=== PATIENT | male | born 1935 | race Caucasian/White ===

== ENCOUNTER → 2024-04-17 08:24 | Outpatient (REF) | payer MEDICARE, OTHER, SELFPAY | LOC: RST 08:24 | DX: R13.10 Dysphagia, unspecified (principal); T17.308D Unspecified foreign body in larynx causing other injury, subsequent encounter; K22.2 Esophageal obstruction | CPT/HCPCS: 74230; 92611 ==

== ENCOUNTER 2024-05-31 14:10 | Inpatient (IN) | payer MEDICARE, OTHER, SELFPAY ==
[2024-05-31] VITALS (9 sets, daily range): BP systolic 124–158; BP diastolic 47–86; BMI 19.8
--- NOTE | 2024-05-31 11:58 | ED.GENMED ---
History of Present Illness
General
Chief Complaint: Change in Mental Status
Source: records, ambulance crew and intermediate
Exam Limitations: clinical condition and dementia
Time Seen by Provider: 05/31/24 11:57
Nursing documentation reviewed up to this point in time: agreed with
History of Present Illness
History of Present Illness:
88-year-old male with a past medical history of dementia, chronic dysphagia with PEG tube, prior stroke with residual aphasia who presents to the emergency room from [facility] as a prehospital stroke alert�EMS was called for a
change in mental status and noted the facial droop which prompted them to call stroke alert. Patient cannot meaningfully participate in history�he is completely nonverbal here. According to EMS they found him lethargic on their arrival, responsive
to painful stimuli. Not following commands, nonverbal. Accu-Chek was reportedly normal. They noted a slight right facial droop and called prehospital stroke alert. I spoke with the nurse practitioner at [facility] to obtain collateral
history: Patient at baseline has quite advanced dementia. He is essentially nonverbal�'on a good day he might be able to say his name but I cannot remember the last time he did.' He is completely dependent for all ADLs. He does have issues with
chronic dysphagia but recently restarted feeds and no longer using PEG�he is currently on pur�ed texture diet with thin liquids. He was in his normal state of health this morning and they were doing his a.m. care which included bathing and changing
his close. During this time they noticed that he had sudden onset of muscle rigidity and started staring into space and was unresponsive. Nurse practitioner says that they laid him down and checked his vital signs and they were normal. Nurse
practitioner noted some vertical nystagmus and muscle rigidity and patient was not responding to words or touch.
Past History
Past History
ED Past Medical History: Arrthythmia (Enlarged heart), GERD, Other (Peripheral vascular disease) and Other (TIA, diverticulitis, kidney stones, gout)
ED Past Surgical History: None, Orthopedic, Tonsilectomy and Other (Lower extremity venous stripping)
Social History
Tobacco: Non-smoker
Alcohol: None
Drug: None
Living: with family
Review of Systems
Review of Systems
Unable to obtain full review of systems at this time due to: dementia
All Other Systems: Not applicable
Phy Exam
Physical Exam
Physical Exam:
General: Patient initially laying in bed with his eyes closed will not open to voice or touch; groans to physical touch and withdraws from painful stimuli; while I was examining him he did ultimately open his eyes but was not tracking with his eyes
and was essentially staring straight ahead
Head: Normocephalic, atraumatic
Eyes: Conjunctiva normal, pupils equal round and reactive to light bilaterally; no nystagmus noted
Throat: Airway intact, handling secretions
Neck: Trachea midline
Lungs: Clear to auscultation bilaterally, no wheezing, rales, rhonchi
Heart: Regular rate and rhythm, no murmurs, gallops, or rubs
Abd: Soft, non distended, no masses appreciated
Neuro: Questionable subtle right facial droop; patient seems to have good muscular tone in all extremities and seems to resist passive range of motion equally in all extremities; he withdraws from painful stimuli in all extremities; he is not
following commands, not responding verbally�completely aphasic
Extremities: No edema in extremities, equal pulses in all extremities
Scores
NIH Stroke Score
Level of Consciousness: 1 - Arousable
LOC Questions: 2-Neither correct
LOC Commands: 2-Performs neither correctly
Best Horizontal Gaze: 0-Normal
Visual Stewart: 0=Normal, no visual loss
Facial Palsy: 1=Minor paralysis
Motor - Right Arm: 2=Partial vs. gravity
Motor - Left Arm: 2=Partial vs. gravity
Motor - Right Le-Partial vs. gravity
Motor - Left Le-Partial vs. gravity
Limb Ataxia: 0-Absent
Sensation: 0-Normal
Best Language: 3-Mute/global aphasia
Dysarthria: 0-Normal
Extinction and Inattention: 0-No abnormality
Total Score:: 17
Heart Failure Risk
Heart Failure Risk Score: Not Applicable
Heart Score for Chest Pain Patients
STEMI patient?: Not applicable
Withdrawal Assessment of Alcohol
Withdrawal Assessment Completed?: Not applicable
Course
Orders/Labs/Results
Orders:
Orders
05/31/24 11:58
CT HEAD STROKE ALERT W/o Cont Urgent
Comment:
Reason For Exam: vhange in ms
05/31/24 11:59
Electrocardiogram (*1) Urgent
Reason for Study: TIA/Stroke
EKG- Treatment ONCE
Urinalysis Reflex To Culture Urgent
CR Chest Portable - 1 View Urgent
Comment:
Reason For Exam: confused
Reason Study Needs to be Portable: Unable to Transport
05/31/24 12:13
EEG Routine Urgent
Reason for Exam: change in mental status
05/31/24 12:15
COVID-19 Antigen Urgent
Source: Nasal Swab
Complete Blood Count/With Diff Urgent
Comprehensive Metabolic Panel Urgent
PTT Urgent
Prothrombin Time Urgent
Influenza A+B Rapid Molecular Urgent
NATALIIA Source: Nasal Swab
Specimen Description:
05/31/24 12:21
Aspirin 300 mg RECTAL NOW STA
Levetiracetam Injectable [Keppra] 1,000 mg IV NOW STA
05/31/24 12:24
Lidocaine 2% [Lidocaine Uro-Jet 2%] 1 syringe .ROUTE .STK-MED ONE
05/31/24 12:25
NEUROLOGY CONSULT Urgent
Consulting Provider: Jamarcus Solorzano
Was physician already notified: Yes
Abnormal Lab Results
05/31/24
12:15
RBC 4.17 L 10^6/uL
(4.70-6.10)
MCH 31.2 H pg
(27.0-31.0)
Carbon Dioxide 31 H mmol/L
(22-30)
BUN 25 H mg/dl
(9-20)
05/31/24 12:15
05/31/24 12:15
Vital Signs
Initial and Last Documented VS:
Initial Vital Signs
Pulse Resp BP Pulse Ox
68 16 136/58 98
05/31/24 12:00 05/31/24 12:00 05/31/24 12:00 05/31/24 12:00
Last Documented Vital Signs
Temp Pulse Resp BP Pulse Ox
36.0 C L 55 14 126/57 98
05/31/24 12:11 05/31/24 12:16 05/31/24 12:16 05/31/24 12:16 05/31/24 12:00
MDM/Problems Addressed
Differential Diagnosis Includes:
Stroke, seizure, encephalopathy related to infection, hypoactive delirium, polypharmacy
MDM/Problems Addressed:
88-year-old male presents to the emergency room for acute onset change in mentation. He has advanced dementia at baseline but became less responsive and, very rigid and apparently had some vertical nystagmus prior to arrival which has resolved. He
was brought as a prehospital stroke alert due to questionable right facial droop. Vitals and exam as above. Accu-Chek confirmed normal. Could be a stroke versus seizure. He was taken for noncontrast CT which was called back by radiology:
Negative for any acute pathology. Case discussed with neurology, hold off on CTA head and neck for now, will proceed with EEG. Recommended no TNK. Treat with aspirin, recommended giving 1 g of IV Keppra as well. Plan for admission for continued
workup. Usual labs sent off will also send infectious studies (viral swabs, urinalysis, chest x-ray) and obtain EKG.
Labs reviewed: CBC unremarkable, CMP�clinically significant abnormalities. COVID-negative. Chest x-ray no acute disease. UA still pending. Plan to admit for continued care, case discussed with hospitalist.
Chronic conditions affecting care:
Advanced dementia
*Radiology
Radiology exam reviewed: radiology read reviewed
*Pulse Oximetry
Patient hypoxic: no
*Critical Care Note
Total Time (30-74mins, 75-104mins- exclusive of procedures): Not Applicable
Data Reviewed
Review of Other/Old Records Reveals: Records
Source: records, ambulance crew and intermediate
Patient Management
Discussion with other providers: Hospitalist (Discussed with hospitalist), Violin Maker Hand (Discussed with neurology), Radiologist (Discussed with the radiologist) and [facility] staff (Discussed with intermediate staff)
Escalation/DeEscalation of care consider admission/obs:
Admission indicated
ED Attending Note
-
Portions of this chart may have been created with voice recognition software.� Occasional wrong word or��sound alike� substitutions may have occurred due to the inherent limitations of voice recognition software.
Discharge Plan
Departure
Patient Disposition: Admit
Date of Disposition: 05/31/24
Time of Disposition: 12:56
Admit to doctor: Ursula
Presentation/result/management discussed w/ accepting MD/DO: Hospitalist
Discharge Problem:
Encephalopathy
Prescriptions:
No Action
quetiapine [Seroquel] 25 mg Tablet
12.5 mg PO BID
latanoprost 0.005 % Drops
1 drp BOTH EYES HS
sennosides [senna] 8.6 mg Tablet
17.2 mg PO HS
acetaminophen [Tylenol] 325 mg Tablet
650 mg PO Q4HPRN PRN (Reason: mild pain)
trazodone 50 mg Tablet
25 mg PO HS
polyethylene glycol 3350 [Miralax] 17 gram Powder In Packet
17 g PO DAILY
thiamine HCl (vitamin B1) 100 mg Tablet
100 mg PO DAILY
Theragen Tablet
1 tab PO DAILY
tramadol 50 mg Tablet
50 mg PO TID
lorazepam 0.5 mg Tablet
0.5 mg PO BIDPRN PRN (Reason: anixety)
magnesium hydroxide [Milk of Magnesia] 400 mg/5 mL Suspension
2,400 mg PO [id number] PRN (Reason: no bm by 3rd day)
bisacodyl [Dulcolax (bisacodyl)] 10 mg Suppository
10 mg WA DAILYPRN PRN (Reason: if no bm aftr mom)
pantoprazole [Protonix] 40 mg Tablet,Delayed Release (Dr/Ec)
40 mg PO DAILY
hyoscyamine sulfate 0.125 mg Tablet
0.125 mg PO Q6HPRN PRN (Reason: secretions)
Fleet Enema 19-7 gram/118 mL Enema
118 ml WA DAILYPRN PRN (Reason: if no bm aftr dulcolax)
docusate sodium [Colace] 100 mg Capsule
100 mg PO BID
gabapentin 100 mg Capsule
200 mg PO BID
dorzolamide 2 % Drops
1 drp BOTH EYES BID
melatonin 5 mg Tablet
5 mg PO HS
Referrals:
Wes Goss I., DO [Family Provider] -
Interventions
Interventions:
*Risk Screen - Suicide Last Done: 05/31/24 12:01
*Neglect/Abuse Screening Last Done: 05/31/24 12:01
*ED COVID-19 Vaccine History Last Done: 05/31/24 12:12
ED- Neurological Assessment Last Done: 05/31/24 12:17
ED Swallowing Screen Last Done: 05/31/24 12:12
Discharge Date and Time
Print Language: MALAY
[2024-05-31 12:24] LABS: % Basophils 1.3 % (0-2); % Eosinophils 4.4 % (0-6); % Immature Granulocytes 0.2 % (0-0.5); % Lymphocytes 28.8 % (20.5-51.1); % Monocytes 8.8 % (1.7-9.3); % Neutrophils 56.5 % (42.2-75.2); Absolute Basophils 0.1 10^3/uL (0-0.2); Absolute Eosinophils 0.2 10^3/uL (0-0.7); Absolute Lymphocytes 1.6 10^3/uL (1.2-3.4); Absolute Monocytes 0.5 10^3/uL (0.1-0.6); Absolute Neutrophils 3.1 10^3/uL (1.4-6.5); Hematocrit 39.1 % (39.0-52.0); Mean Corp Hgb Conc. 33.2 g/dL (33.0-37.0); Mean Corpuscular Hgb 31.2 pg (27.0-31.0); Mean Corpuscular Volume 93.8 fL (80.0-94.0); Mean Platelet Volume 8.7 fL (7.4-10.4); Nucleated Red Blood Cells % 0 % (-); Platelet Count 215 10^3/uL (130-400); Red Blood Cell Count 4.17 10^6/uL (4.70-6.10); White Blood Cell Count 5.5 10^3/uL (4.8-10.8)
[2024-05-31] MEDS: ASPIRIN 300 MG RECTAL (12:28)
[2024-05-31] MEDS: KEPPRA 1000 MG IV (12:30)
[2024-05-31 12:33] LABS: INR 1.02; PT 13.4 Sec (11.4-14.6)
[2024-05-31 12:34] LABS: APTT 27.7 Sec (23.4-35.0)
[2024-05-31 12:37] LABS: ALT (SGPT) 10 U/L (0-50); AST (SGOT) 17 U/L (17-59); Albumin 3.6 g/dl (3.5-5.0); Alkaline Phosphatase 78 U/L (38-126); Blood Urea Nitrogen 25 mg/dl (9-20); Carbon Dioxide 31 mmol/L (22-30); Chloride 100 mmol/L (98-107); Glucose 98 mg/dl (70-99); Potassium 4.5 mmol/L (3.5-5.1); Sodium 140 mmol/L (135-145); Total Bilirubin 0.3 mg/dl (0.2-1.3); Total Protein 6.7 g/dl (6.3-8.2); eGFR > 60.00
[2024-05-31 12:41] LABS: COVID-19 Antigen Negative (Negative)
--- NOTE | 2024-05-31 13:29 | HPS.HSE ---
Family Physician
-
Family Physician: Wes Goss
Chief Complaint
-
unresponsive
History of Present Illness
88-year-old male with a past medical history of dementia, chronic dysphagia with PEG tube, prior stroke with residual aphasia presented to us after the staff at [facility] noticed sudden onset of muscle rigidity, staring, unresponsive as he was
receiving his AM care. upon my assessment patient is oriented to self.stated some pain at the right IV site. denied CHUNG, dizzy or syncopal episode. denied fever, chills, chest pain, sob.denied abdominal pain,n,v,d.
head CT and chest x ray with no acute findings. received asa and Keppra in ER. admitting for further management.
Medical History
Past Medical History
Past Medical History: Reports Other
Additional Past Medical History:
dementia
CVA
barrets esophagus
dysphagia
gerd
htn
insomnia
constipation
Past Surgical History: Reports Other
Additional Past Surgical History:
peg tube
Social History
Tobacco: Non-smoker
Alcohol: None
Drug: None
Personal: Single
Living: [facility]
Family History
Family History: Not pertinent
Allergies / Home Medications
Allergies reflects when Allergies were last updated in [facility].
Home Medications with original date entered in [facility]
Allergy/Medication List:
Allergies
Allergy/AdvReac Type Severity Reaction Status Date / Time
No Known Allergies Allergy Unverified 01/14/13 14:59
Home Medications
acetaminophen 325 mg tablet (Tylenol) 650 mg PO Q4HPRN PRN mild pain 05/31/24
bisacodyl 10 mg rectal suppository (Dulcolax (bisacodyl)) 10 mg NH DAILYPRN PRN if no bm aftr mom 05/31/24
docusate sodium 100 mg capsule (Colace) 100 mg PO BID 05/31/24
dorzolamide 2 % eye drops 1 drp BOTH EYES BID 05/31/24
gabapentin 100 mg capsule 200 mg PO BID 05/31/24
hyoscyamine sulfate 0.125 mg tablet 0.125 mg PO Q6HPRN PRN secretions 05/31/24
latanoprost 0.005 % eye drops 1 drp BOTH EYES HS 05/31/24
lorazepam 0.5 mg tablet 0.5 mg PO BIDPRN PRN anixety 05/31/24
magnesium hydroxide 400 mg/5 mL oral suspension (Milk of Magnesia) 2,400 mg PO [id number] PRN no bm by 3rd day 05/31/24
melatonin 5 mg tablet 5 mg PO HS 05/31/24
pantoprazole 40 mg tablet,delayed release (Protonix) 40 mg PO DAILY 05/31/24
polyethylene glycol 3350 17 gram oral powder packet (Miralax) 17 g PO DAILY 05/31/24
quetiapine 25 mg tablet (Seroquel) 12.5 mg PO BID 05/31/24
sennosides 8.6 mg tablet (senna) 17.2 mg PO HS 05/31/24
sodium phosphates 19 gram-7 gram/118 mL enema (Fleet Enema) 118 ml NH DAILYPRN PRN if no bm aftr dulcolax 05/31/24
therapeutic multivitamin 1 tab PO DAILY 05/31/24
thiamine HCl (vitamin B1) 100 mg tablet 100 mg PO DAILY 05/31/24
tramadol 50 mg tablet 50 mg PO TID 05/31/24
trazodone 50 mg tablet 25 mg PO HS 05/31/24
Review of Systems
-
Constitutional: Reports No Symptoms
EENT: Reports No Symptoms
Respiratory: Reports No Symptoms
Cardiac: Reports No Symptoms
Abdomen/GI: Reports No Symptoms
: Reports No Symptoms
Musculoskeletal: Reports No Symptoms
Skin: Reports No Symptoms
Neurological: Reports No Symptoms
Endocrine: Reports No Symptoms
Hematologic/Lymphatic: Reports No Symptoms
Psych: Reports No Symptoms
Physical Exam
Vital Signs
Vital Signs
Temp Pulse Resp BP Pulse Ox
96.8 F L 55 14 126/57 98
05/31/24 12:11 05/31/24 12:16 05/31/24 12:16 05/31/24 12:16 05/31/24 12:00
Physical Exam
General: Well Developed, Well Nourished and No Apparent Distress
HEENT: NormoCephalic, Moist mucous membranes and Atraumatic
Respiratory: Clear
Cardiac: S1/S2 and Regular Rhythm; No Murmur or Rub
GI: Soft, Non Tender, Non Distended and Normal Bowel Sounds; No Organomegaly
Rectal: Deferred by Provider
Musculoskeletal: No Clubbing, No Cyanosis and No Edema
Skin: No Rash
Neuro: Nonfocal/grossly intact
Psych: Confused
Laboratory Results
-
05/31/24 12:15
05/31/24 12:15
Laboratory Results
PT 13.4 Sec (11.4-14.6) 05/31/24 12:15
INR 1.02 05/31/24 12:15
APTT 27.7 Sec (23.4-35.0) 05/31/24 12:15
Total Bilirubin 0.3 mg/dl (0.2-1.3) 05/31/24 12:15
AST 17 U/L (17-59) 05/31/24 12:15
ALT 10 U/L (0-50) 05/31/24 12:15
Alkaline Phosphatase 78 U/L (38-126) 05/31/24 12:15
Data Reviewed
-
CT Scan: Report Reviewed by me
Lab Data: Labs Reviewed by me
Impression/Plan
-
#metabolic encephalopathy/right facial droop and vertical nystagmus r/o seizure/CVA
-obtain MRI and EEG
-obtain a1c.lipid profile
-asa and Keppra continued
-neuro following patient
-chest x ray with Mild elevation of the right hemidiaphragm and low lung volumes without focal airspace disease.
-negative COVID, influenza A ad B
-head CT with No acute intracranial hemorrhage noted.There is extensive parenchymal volume loss, most pronounced along the bilateral mesial temporal lobes, and sequelae of mild/moderate small vessel ischemic disease. Prominence of the ventricular
system, likely secondary to adjacent volume loss.
#anxiety
-lorazepam continued
#GERD
-PPI continued
#Dementia
-melatonin continued
-hold trazodone and tramadol and Seroquel
#DVT prophylaxis
-scd
#CODE status
-full code
--- NOTE | 2024-05-31 14:01 | W.PN.UPDATE ---
Update Note
Progress Note Update
This is an addendum to the H&P written by Felicia Hubbard on 05/31/2024. Patient seen and examined independently with BRAND MANAGER.
88-year-old male past medical history of dementia, chronic dysphagia with PEG tube, prior CVA with residual aphasia apparently nonverbal at baseline, hypertension, peripheral vascular disease, GERD, kidney stones, gout, presenting from [facility] for change in mental status and facial droop prompting stroke alert. Was noted to be nonverbal here. EMS found him lethargic and nonverbal. Accu-Chek was normal. Right facial droop was noted and patient was brought to the hospital.
Has chronic dysphagia but recently started on pur�ed diet with thin liquids. This morning he had sudden onset of muscle rigidity and staring with unresponsiveness. Nurse practitioner noted vertical nystagmus and muscle rigidity.
CT head negative for acute abnormality. Chest x-ray negative. Labs unremarkable.
Patient hypothermic with temperature of 96.8 likely from seizure. No focal neurological deficits on examination. Aspirin given. Patient Keppra loaded 1000 mg. EEG pending. Patient on tramadol, trazodone and Seroquel which can lower seizure
threshold. Will hold tramadol, trazodone, seroquel for now. Neurology consulted.
--- NOTE | 2024-05-31 14:02 | CON.NEURO4 ---
Documented by User: Toshia Perez NP 05/31/24 14:46
Consultation - Neurology 4
-
CONSULTING PHYSICIAN: Jamarcus Solorzano MD
REFERRING PHYSICIAN: ER/Dr. Pires
DICTATED BY: VALERIA Walton
DATE/TIME OF REQUEST: 05/31/24
DATE/TIME OF CONSULTATION: 05/31/24
Reason for Consultation: Stroke Alert
History of Present Illness:
This is an 88-year-old male who has presented to the hospital from [facility] with report of change in mental status. 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 Per [place] staff, he is essentially nonverbal at
baseline, he rarely will say his name only. He is complete care for all ADLs and is wheelchair bound. He has a chronic PEG tube, it appears speech therapy evaluated him in March 2024 and recommended he remain NPO but if goals of care were for
comfort, then he can have a soft diet with the risk of aspiration.
This morning (05/31/24), nursing staff were changing him when his body suddenly became stiff, he was blankly starring, had vertical nystagmus, and he was less responsive than baseline. EMS noted right facial drooping on their arrival and activated a
prehospital stroke alert. CT head was obtained on arrival and is negative for any acute findings. Patient is currently nonverbal and does not follow any commands. He has his eyes open with foreword gaze but does not track around the room. He moves
all extremities spontaneously minimally. There is no facial drooping noted currently. He grimaces to pain but produces no verbal response. NIHSS is 19 which seems to be about baseline for him. He is not a candidate for TNK/IAT due to unclear
diagnosis and baseline MRS score 5.
Past Medical History: Ischemic stroke with residual aphasia and dysphagia, dementia, HTN, PVD, rheumatic fever, Falcon's esophagus, glaucoma, anxiety, GERD, chronic pain, diverticulitis, renal calculi, gout
Surgical History: Peg tube, tonsillectomy, lower extremity venous stripping
Family History: Reviewed and noncontributory.
Social History: No tobacco, alcohol, or illicit drug use.
Allergies: No known allergies.
Home Medications: See below.
Review of Symptoms:
Per the HPI. I am unable to obtain a complete review of systems�because of patient's inability to provide history.
Physical Exam:
The patient is afebrile, abdomen is nondistended, breathing is unlabored, skin is cool and dry, no edema.
NIH Stroke Scale:
I performed the NIH stroke scale on the patient on 05/31/24 at 1200. The patient scored 19 points on the NIH stroke scale assessment, which were assigned as follows: See below.
Neurologic Examination:
The patient is awake, starring blankly foreword. He does not follow any commands. No verbal response. Grimaces to pain. On cranial nerve assessment, pupils are 3 mm bilateral, round and reactive to light and accommodation. MARIAELENA visual stewart and
EOMs, no gaze deviation. There is no facial asymmetry. MARIAELENA tongue and uvular. Localizes BUE and withdraws BLE to pain. Spontaneously moves all extremities 2/5. MARIAELENA drift. No involuntary movement noted. Babinski is absent bilaterally. MARIAELENA sensation,
double simultaneous, and coordination.
Lab Results: See below.
Neuro Imaging:
1. CT Head 05/31/24: No acute intracranial hemorrhage noted. There is extensive parenchymal volume loss, most pronounced along the bilateral mesial temporal lobes, and sequelae of mild/moderate small vessel ischemic disease. Prominence of the
ventricular system, likely secondary to adjacent volume loss. Aspects:10.
Differentials for the patient's presentation include:
1. Change in mental status; unclear etiology, possibly seizure, metabolic disturbance, vascular.
Patient has the following risk factors for their symptoms: Hx stroke, age
IV Tenecteplase/IAT candidacy: He is not a candidate for TNK/IAT due to unclear diagnosis and baseline MRS score 5.
Recommendations:
-Provide rectal aspirin 300mg x1 now. Would continue aspirin 81mg daily given hx stroke unless otherwise contraindicated.
-Provide Keppra 1000mg IV x1 now.
-Urgent EEG pending.
-MRI brain noncontrast pending.
-Goal normothermia, normotension.
-Infectious workup per primary team.
-NIHSS and Neurological checks per unit guidelines.
-Provide patient with a stroke education packet.
-LDL goal <70. Lipid panel pending.
-Goal normoglycemia, hbA1c pending.
-Checking blood work for metabolic abnormalities.
-DVT prophylaxis.
Discussed patient care with: Dr. Solorzano, Dr. Pires, nursing staff
Vital Signs and Labs
-
Vital Signs and Labs:
Vital Signs
Temp Pulse Resp BP Pulse Ox
96.8 F L 53 16 129/76 92
05/31/24 12:11 05/31/24 14:03 05/31/24 13:00 05/31/24 14:03 05/31/24 13:00
Lab Results
05/31/24 12:15
05/31/24 12:15
PT 13.4 Sec (11.4-14.6) 05/31/24 12:15
INR 1.02 05/31/24 12:15
APTT 27.7 Sec (23.4-35.0) 05/31/24 12:15
Sodium 140 mmol/L (135-145) 05/31/24 12:15
Potassium 4.5 mmol/L (3.5-5.1) 05/31/24 12:15
BUN 25 mg/dl (9-20) H 05/31/24 12:15
Glucose 98 mg/dl (70-99) 05/31/24 12:15
Calcium 9.0 mg/dl (8.4-10.2) 05/31/24 12:15
Medications
-
Home Medications
�Medication �Instructions �Recorded
acetaminophen 325 mg tablet 650 mg PO Q4HPRN PRN mild pain 05/31/24
(Tylenol)
bisacodyl 10 mg rectal suppository 10 mg FL DAILYPRN PRN if no bm 05/31/24
(Dulcolax (bisacodyl)) aftr mom
docusate sodium 100 mg capsule 100 mg PO BID 05/31/24
(Colace)
dorzolamide 2 % eye drops 1 drp BOTH EYES BID 05/31/24
gabapentin 100 mg capsule 200 mg PO BID 05/31/24
hyoscyamine sulfate 0.125 mg tablet 0.125 mg PO Q6HPRN PRN secretions 05/31/24
latanoprost 0.005 % eye drops 1 drp BOTH EYES HS 05/31/24
lorazepam 0.5 mg tablet 0.5 mg PO BIDPRN PRN anixety 05/31/24
magnesium hydroxide 400 mg/5 mL 2,400 mg PO [id number] PRN no bm by 05/31/24
oral suspension (Milk of Magnesia) 3rd day
melatonin 5 mg tablet 5 mg PO HS 05/31/24
pantoprazole 40 mg tablet,delayed 40 mg PO DAILY 05/31/24
release (Protonix)
polyethylene glycol 3350 17 gram 17 g PO DAILY 05/31/24
oral powder packet (Miralax)
quetiapine 25 mg tablet (Seroquel) 12.5 mg PO BID 05/31/24
sennosides 8.6 mg tablet (senna) 17.2 mg PO HS 05/31/24
sodium phosphates 19 gram-7 118 ml FL DAILYPRN PRN if no bm 05/31/24
gram/118 mL enema (Fleet Enema) aftr dulcolax
therapeutic multivitamin 1 tab PO DAILY 05/31/24
thiamine HCl (vitamin B1) 100 mg 100 mg PO DAILY 05/31/24
tablet
tramadol 50 mg tablet 50 mg PO TID 05/31/24
trazodone 50 mg tablet 25 mg PO HS 05/31/24
NIH Stroke Score
Subsequent NIH Scale
Date of Subsequent NIH Scale: 05/31/24
Time of Subsequent NIH Scale: 12:00
NIH Stroke Score
Level of Consciousness: 0 - Alert
LOC Questions: 2-Neither correct
LOC Commands: 2-Performs neither correctly
Best Horizontal Gaze: 0-Normal
Visual Stewart: 0=Normal, no visual loss
Facial Palsy: 0=Normal, symmetrical
Motor - Right Arm: 3=None vs. gravity
Motor - Left Arm: 3=None vs. gravity
Motor - Right Le-None vs. gravity
Motor - Left Le-None vs. gravity
Limb Ataxia: 0-Absent
Sensation: 0-Normal
Best Language: 3-Mute/global aphasia
Dysarthria: 0-Normal
Extinction and Inattention: 0-No abnormality
Total Score:: 19
Modified [place] (mRS) Score
Modified [place] Scale (mRS): Severe disability. Requires constant nursing care.
Score: 5
Alteplase Contraindication
Inclusion and Exclusion criteria reviewed: Yes
IAT Contraindications: Baseline mRS greater than or equal to 3 by history

Documented by User: Jamarcus Solorzano MD 05/31/24 22:31
Consultation - Neurology 4
-
CONSULTING PHYSICIAN: Jamarcus Solorzano MD
REFERRING PHYSICIAN: ER/Dr. Pires
DICTATED BY: VALERIA Walton
DATE/TIME OF REQUEST: 05/31/24
DATE/TIME OF CONSULTATION: 05/31/24
Reason for Consultation: Stroke Alert
History of Present Illness:
This is an 88-year-old male who has presented to the hospital from [facility] with report of change in mental status. 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 Per [facility] staff, he is essentially nonverbal at
baseline, he rarely will say his name only. He is complete care for all ADLs and is wheelchair bound. He has a chronic PEG tube, it appears speech therapy evaluated him in March 2024 and recommended he remain NPO but if goals of care were for
comfort, then he can have a soft diet with the risk of aspiration.
This morning (05/31/24), nursing staff were changing him when his body suddenly became stiff, he was blankly starring, had vertical nystagmus, and he was less responsive than baseline. EMS noted right facial drooping on their arrival and activated a
prehospital stroke alert. CT head was obtained on arrival and is negative for any acute findings. Patient is currently nonverbal and does not follow any commands. He has his eyes open with foreword gaze but does not track around the room. He moves
all extremities spontaneously minimally. There is no facial drooping noted currently. He grimaces to pain but produces no verbal response. NIHSS is 19 which seems to be about baseline for him. He is not a candidate for TNK/IAT due to unclear
diagnosis and baseline MRS score 5.
Past Medical History: Ischemic stroke with residual aphasia and dysphagia, dementia, HTN, PVD, rheumatic fever, Falcon's esophagus, glaucoma, anxiety, GERD, chronic pain, diverticulitis, renal calculi, gout
Surgical History: Peg tube, tonsillectomy, lower extremity venous stripping
Family History: Reviewed and noncontributory.
Social History: No tobacco, alcohol, or illicit drug use.
Allergies: No known allergies.
Home Medications: See below.
Review of Symptoms:
Per the HPI. I am unable to obtain a complete review of systems�because of patient's inability to provide history.
Physical Exam:
The patient is afebrile, abdomen is nondistended, breathing is unlabored, skin is cool and dry, no edema.
NIH Stroke Scale:
I performed the NIH stroke scale on the patient on 05/31/24 at 1200. The patient scored 19 points on the NIH stroke scale assessment, which were assigned as follows: See below.
Neurologic Examination:
The patient is awake, starring blankly foreword. He does not follow any commands. No verbal response. Grimaces to pain. On cranial nerve assessment, pupils are 3 mm bilateral, round and reactive to light and accommodation. MARIAELENA visual stewart and
EOMs, no gaze deviation. There is no facial asymmetry. MARIAELENA tongue and uvular. Localizes BUE and withdraws BLE to pain. Spontaneously moves all extremities 2/5. MARIAELENA drift. No involuntary movement noted. Babinski is absent bilaterally. MARIAELENA sensation,
double simultaneous, and coordination.
Lab Results: See below.
Neuro Imaging:
1. CT Head 05/31/24: No acute intracranial hemorrhage noted. There is extensive parenchymal volume loss, most pronounced along the bilateral mesial temporal lobes, and sequelae of mild/moderate small vessel ischemic disease. Prominence of the
ventricular system, likely secondary to adjacent volume loss. Aspects:10.
Differentials for the patient's presentation include:
1. Change in mental status; unclear etiology, possibly seizure, metabolic disturbance, vascular.
Patient has the following risk factors for their symptoms: Hx stroke, age
IV Tenecteplase/IAT candidacy: He is not a candidate for TNK/IAT due to unclear diagnosis and baseline MRS score 5.
Recommendations:
-Provide rectal aspirin 300mg x1 now. Would continue aspirin 81mg daily given hx stroke unless otherwise contraindicated.
-Provide Keppra 1000mg IV x1 now.
-Urgent EEG pending.
-MRI brain noncontrast pending.
-Goal normothermia, normotension.
-Infectious workup per primary team.
-NIHSS and Neurological checks per unit guidelines.
-Provide patient with a stroke education packet.
-LDL goal <70. Lipid panel pending.
-Goal normoglycemia, hbA1c pending.
-Checking blood work for metabolic abnormalities.
-DVT prophylaxis.
Discussed patient care with: Dr. Solorzano, Dr. Pires, nursing staff
Neurology Attending Note:
CC: AMS
HPI:88-year-old male who was presented to the hospital ED for evalaution of Altered mental status. He is a [place] resident @ [facility] who suffered an ischemic stroke with residual aphasia,nonverbal and dysphagia.He is complete dependent on staff
for all ADLs and is wheelchair bound. He has a PEG tube for his nutritional needs, and he is NPO.
This morning (05/31/24), nursing staff were changing him when his body stiffened, with a blank stare and vertical nystagmus. He was unable to be aroused , and was less responsive than baseline. EMS noted right facial drooping on their arrival and
activated a prehospital stroke alert.
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
Pat was loaded with Keppra 1000mg
O/E: He is postictal confused aphasic. CN Non focal exam. Motor exam reveals generalized weakness
A/P: AMS multifactorial secondary to new seizure vs CVA vs sepsis
PLAN: EEG
Keppra 1000mg loading followed by Keppra 500mg IV q 12
Serial Neuro exam
Aspirin suppository
NIH Stroke Score
NIH Stroke Score
Total Score:: 19
Modified [place] (mRS) Score
Score: 5
[2024-05-31 14:15] LABS: Urine Albumin Negative (Neg - Trace); Urine Bilirubin Negative (Negative); Urine Character Clear (Clear); Urine Color Yellow; Urine Glucose Negative (Negative); Urine Ketone Negative (Negative); Urine Leukocyte Negative (Negative); Urine Nitrite Negative (Negative); Urine Occult Blood Negative (Negative); Urine Urobilinogen Negative (Neg - 1+)
[2024-05-31 15:12] LABS: HDL Cholesterol 38 mg/dl; LDL Cholesterol, Calculated 81 mg/dl; Total Cholesterol 131 mg/dl (50-199); Triglyceride 64 mg/dl (10-149); Very Low Density Lipoprotein 12 mg/dl (0-30)
[2024-05-31 15:39] LABS: TSH Reflex To Free T4 3.01 uIU/ml (0.47-4.68)
[2024-05-31 15:43] LABS: Ferritin 33.1 ng/ml (17.9-464.0)
[2024-05-31 15:50] LABS: Creatine Phosphokinase 64 U/L (55-170)
[2024-05-31 16:14] LABS: Folate 5.4 ng/ml (2.76-20); Vitamin B12 792 pg/ml (239-931)
--- NOTE | 2024-05-31 17:22 | EEG.RPT ---
Electroencephalogram Report
Recording
Date of EE05/31/24
Type of EEG: Routine
Length of EEG recordin mins
Done with Video Recording: Yes
Patient Status: Inpatient
Recording Conditions: Awake
Hyperventilation Performed: No
Photic Stimulation Performed: Yes
Report
METHODS
A 21 channel digitized electroencephalogram was performed at [facility]. The 10/20 international system of electrode placement was used. In addition to EEG, the patient was monitored for EKG. The duration of the recording was 27 minutes.
BACKGROUND
During the awake state, with the eyes closed, the background consisted of diffuse slowing to 6-8Hz with superimposed diffuse excess beta activity.
PHOTIC STIMULATION
Photic stimulation using a step-lan increase in photic frequency varying from 1-31 Hertz resulted in no driving responses but no appearance of abnormal activity.
ABNORMAL EEG ACTIVITY
This EEG is abnormal due to the presence of consisted of diffuse slowing to 6-8Hz with superimposed diffuse excess beta activity.
CLINICAL EVENTS
None
INTERPRETATION AND CLINICAL CORRELATION
This EEG is abnormal due to the presence of consisted of diffuse slowing to theta range frequencies with superimposed diffuse excess beta activity; the form can be seen due to mild diffuse cerebral dysfunction; diffuse excess beta activity can be
seen due to drug effect.
[2024-05-31] MEDS: LIPITOR 40 MG PO (17:56)
--- NOTE | 2024-05-31 18:04 | PTCARENOTE ---
Pt received from the ER, drowsy but awakens easily. NIHSS of 5, much improved from the ER assessment pt was talking and participating with test. Ox2 but quickly falls back asleep. Follows commands without difficulty. Pt answering questions when
asked but he is intermittently nonverbal at [place]. Sinus julian with 1� AVB on tele, + pulses, no edema. Breath sounds clear. Pt incontinent of bowel and bladder. PEG tube in place although no longer [facility] at the [facility] as pt tolerated pureed
diet with thins. Skin clear. Call crum within reach.
[2024-05-31] MEDS: NEURONTIN 200 MG PO (21:09)
[2024-05-31] MEDS: COLACE 100 MG PO (21:09)
[2024-05-31] MEDS: XALATAN OPHTHALMIC SOLUTION 1 DROP BOTH EYES (21:09)
[2024-05-31] MEDS: TRUSOPT 2% OPHTHALMIC SOLUTION 1 DROP BOTH EYES (21:10)
[2024-05-31] MEDS: MELATONIN 5 MG PO (21:12)
[2024-05-31] MEDS: SENOKOT 17.2 MG PO (21:12)
[2024-06-01 03:18] VITALS: BP 155/85
[2024-06-01 07:59] VITALS: BP 112/54
[2024-06-01 08:42] LABS: Hematocrit 35.9 % (39.0-52.0); Hemoglobin 12.2 g/dL (13.0-18.0); Mean Corpuscular Hgb 31.4 pg (27.0-31.0); Mean Corpuscular Volume 92.5 fL (80.0-94.0); Platelet Count 225 10^3/uL (130-400); Red Blood Cell Count 3.88 10^6/uL (4.70-6.10); Red Cell Dist. Width 13.2 % (11.5-14.5); White Blood Cell Count 4.9 10^3/uL (4.8-10.8)
[2024-06-01] MEDS: MIRALAX 17 GRAMS PO (08:42)
[2024-06-01] MEDS: NEURONTIN 200 MG PO (08:43)
[2024-06-01] MEDS: VITAMIN B1 100 MG PO (08:43)
[2024-06-01] MEDS: THERAGRAN 1 TABLET PO (08:43)
[2024-06-01] MEDS: PROTONIX 40 MG PO (08:43)
[2024-06-01] MEDS: COLACE 100 MG PO (08:43)
[2024-06-01] MEDS: TRUSOPT 2% OPHTHALMIC SOLUTION 1 DROP BOTH EYES (08:43)
[2024-06-01] MEDS: KEPPRA 500 MG IV (08:44)
[2024-06-01] MEDS: LOW STRENGTH ASPIRIN 81 MG PO (08:44)
[2024-06-01 08:50] LABS: Glycohemoglobin (HgbA1c) 5.5 % (4.0-5.6)
[2024-06-01] MEDS: TYLENOL 650 MG PO (08:55)
[2024-06-01 09:14] LABS: HDL Cholesterol 36 mg/dl; LDL Cholesterol, Calculated 81 mg/dl; Total Cholesterol 128 mg/dl (50-199); Triglyceride 57 mg/dl (10-149); Very Low Density Lipoprotein 11 mg/dl (0-30)
--- NOTE | 2024-06-01 09:36 | W.PN.HOSP.TC ---
Addendum entered and electronically signed by Gilberto Tineo DO 06/01/24 13:35:
underweight
Original Note:
Today's Communication/Plan
-
Discharge
Assessment / Plan
Assessment / Plan
Gen-awake, alert, confused, NAD
HEENT-NC, AT, anicteric, clear oral mm
Neck-supple
CV-reg, no M, +S1/S2
Lungs-clear B/L
Abd-soft, NT, ND
Ext-no edema
Musculoskeletal-no cyanosis, clubbing
Skin-warm and dry
Acute TME -possible seizure. Discussed with neurology service. Dr. Solorzano does not recommend pursuing brain MRI as it will not oil changer. Tramadol discontinued. Keppra initiated.
CT head without acute bleed, there is extensive parenchymal volume loss in keeping with underlying dementia. 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
Severe dysphagia -failed video swallowing study in March. At that time the recommendation was for goals of care discussion and consideration of comfort measures if he is to continue to eat by mouth. I spoke with family on the phone, they prefer
to continue oral feeds as this is his only means of pleasure. If that is the case then I recommend either comfort measures or hospice. Also recommend change CODE STATUS to DNR. Discussed with [id number] Dana on the phone. She is agreeable
to hospice back in the halfway.
Dementia -unknown type. 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
Essential hypertension -stable.
GERD
Dispo -medically stable for discharge back to halfway today. Recommend initiation of hospice in the halfway. Family and case management aware.
35 minutes spent in discharge process.
Anticipated Discharge: Today
Subjective/Interval History
-
Date of Service: June 01, 2024
Patient seen and examined. Confused but no complaints.
Objective Data
-
Labs:
Laboratory Results
06/01/24 06/01/24
07:32 09:14
WBC 4.9
Hgb 12.2 L
Hct 35.9 L
Plt Count 225
Sodium Cancelled Pending
Potassium Cancelled Pending
Chloride Cancelled Pending
Carbon Dioxide Cancelled Pending
BUN Cancelled Pending
Creatinine Cancelled Pending
Glucose Cancelled Pending
Calcium Cancelled Pending
Vital Signs:
Vital Signs
Temp Pulse Resp BP Pulse Ox
97.7 F 59 17 112/54 97
06/01/24 07:59 06/01/24 07:59 06/01/24 07:59 06/01/24 07:59 06/01/24 07:59
I&O
05/31/24 06/01/24 06/02/24
06:59 06:59 06:59
Intake Total 120 / 120
Balance 120 / 120
Review of Systems
-
History Source: Patient
All other systems: Reviewed and negative
--- NOTE | 2024-06-01 09:47 | W.DS.TRANS ---
DC Summary - Merchandising Representative
-
Discharge Instructions:
Discharge Diagnosis/Procedures Possible seizure
Diet Other diet
Additional Diets Pur�ed diet, aspiration precautions
Activity With assistance
Driving Restrictions No driving
Bathing Restrictions None
Other Services Hospice
Instructions:
Stand-Alone Forms:
Changes to Home Medications: Yes
Discharge Medications:
DC Medications w/original date entered in [facility]
acetaminophen 325 mg tablet (Tylenol) 650 mg PO Q4HPRN PRN mild pain 05/31/24
bisacodyl 10 mg rectal suppository (Dulcolax (bisacodyl)) 10 mg ND DAILYPRN PRN if no bm aftr mom 05/31/24
docusate sodium 100 mg capsule (Colace) 100 mg PO BID Constipation 05/31/24
dorzolamide 2 % eye drops 1 drp BOTH EYES BID Eye Condition 05/31/24
gabapentin 100 mg capsule 200 mg PO BID Neurological Condition 05/31/24
hyoscyamine sulfate 0.125 mg tablet 0.125 mg PO Q6HPRN PRN secretions 05/31/24
latanoprost 0.005 % eye drops 1 drp BOTH EYES HS 05/31/24
magnesium hydroxide 400 mg/5 mL oral suspension (Milk of Magnesia) 2,400 mg PO [id number] PRN no bm by 3rd day 05/31/24
melatonin 5 mg tablet 5 mg PO HS Sleep 05/31/24
pantoprazole 40 mg tablet,delayed release (Protonix) 40 mg PO DAILY Gastrointestinal Issue 05/31/24
polyethylene glycol 3350 17 gram oral powder packet (Miralax) 17 g PO DAILY Constipation 05/31/24
quetiapine 25 mg tablet (Seroquel) 12.5 mg PO BID Mental Health/Anxiety 05/31/24
sennosides 8.6 mg tablet (senna) 17.2 mg PO HS Constipation 05/31/24
sodium phosphates 19 gram-7 gram/118 mL enema (Fleet Enema) 118 ml ND DAILYPRN PRN if no bm aftr dulcolax 05/31/24
therapeutic multivitamin 1 tab PO DAILY Supplement 05/31/24
thiamine HCl (vitamin B1) 100 mg tablet 100 mg PO DAILY Supplement 05/31/24
trazodone 50 mg tablet 25 mg PO HS Mental Health/Anxiety 05/31/24
levetiracetam 500 mg tablet (Keppra) 500 mg PO BID #60 tabs 06/01/24
lorazepam 0.5 mg tablet 0.5 mg PO BIDPRN PRN anixety #4 tabs 06/01/24
Home Medication Changes
Stop tramadol
Pending Results: No
--- NOTE | 2024-06-01 09:50 | PTOTSP ---
SPEECH THERAPY SWALLOW AND SPEECH/LANGUAGE/COGNITIVE COMMUNICATION EVALUATION:
Patient exhibits clinical signs of oropharyngeal dysphagia, likely chronic related to history of CVA with residual dysphagia, GERD, dementia, and possibly acutely exacerbated by acute change in mental status of unknown etiology. Patient with prior
Outpatient VSE at 04/17/2024 which demonstrated 'mild oral and moderate-severe pharyngeal dysphagia characterized by mod decreased base of tongue movement and partial distention of pharyngoesophageal segment (PES). This led to moderate to severe
amount of pharyngeal residue across all trials. Pharyngeal dysphagia also characterized by mildly decreased anterior hyoid movement with decreased airway protection. Penetration and/or aspiration noted with majority of consistencies trialed during
study. Cued cough was effective at clearing aspirated material.' Patient was recommended for GOC discussion at that time given high risk for aspiration and related complications:
'Recommend:
(1) Goals of care discussion given high risk for aspiration
(2) If diet to be decided despite risks of aspiration, would consider pureed
solids/thin liquids via single cup sips with frequent cueing to cough and clear
any potentially aspirated material
(3) ACTUARIAL TECHNICIAN follow up at least for education with family. Can trial dysphagia tx,
although unsure this would be effective given cognitive status'
At this time, patient appears to be at baseline level of swallow function. Given recent VSE 04/17/2024, recommend continue recommendations from that examination: (1) Safest recommendation for NPO with PEG in place for all
nutrition/medication/hydration, vs (2) GOC discussion with pt/family; Should family/pt opt for oral diet while accepting HIGH risk for aspiration and related complications, would recommend comfort feedings via oral diet of Puree textures, thin
liquids, with cued cough/clear. Discussed results of VSE with Dr. Tineo. Speech therapy to follow-up for pt/family education, GOC discussion.
Patient exhibits mild speech and moderate expressive/receptive language and cognitive communication impairments, likely chronic related to history of CVA with residual aphasia and dementia, and possibly acutely exacerbated by change in mental status
of unknown etiology. ST to follow at the acute care level to ensure patient is at baseline level of functioning, including pending MRI results.
RECOMMEND:
1) (1) Safest recommendation for NPO with PEG in place for all nutrition/medication/hydration vs
2) (2) GOC discussion with pt/family; Should family/pt opt for oral diet while accepting HIGH risk for aspiration and related complications, would recommend comfort feedings via oral diet of Puree textures, thin liquids, with cued cough/clear, 1:1
assistance, aspiration/reflux precautions in place
3) ST to follow for pt/family education and GOC discussion, as well as follow up for speech/language/cognitive communication impairments pending diagnosis
[2024-06-01 10:23] LABS: Blood Urea Nitrogen 26 mg/dl (9-20); Carbon Dioxide 29 mmol/L (22-30); Chloride 102 mmol/L (98-107); Estimated Creatinine Clearance 50 ml/min; Glucose 140 mg/dl (70-99); Potassium 4.3 mmol/L (3.5-5.1); Sodium 142 mmol/L (135-145); eGFR > 60.00
--- NOTE | 2024-06-01 10:33 | CM ---
Patient for transfer back to [facility] via ambulance.
Kita from [facility].
Spoke with daughter in law Dana [phone]
Per Dana she is in agreement with transfer, initiation of hospice at the facility, [facility], DNR status at the facility.
IMM reviewed via phone with Dana.
Ambulance transfer forms completed.
Plan: [facility] today 1 pm via ambulance.
[facility]
Report# [phone]
--- NOTE | 2024-06-01 10:36 | PN.CDI ---
CDI
- -
CDI:
Physician Documentation Request
Admit Date: 05/31/24 14:10
Dear Doctor Noman,
Patient admitted for possible seizure.
Please review the following and provide your response in the progress notes.
Clinical Indicators:
Height: 6' 1'
Weight: 150 lbs
BMI: 19.8
Other Clinical Notes:
06/01 Hospitalist PN: 'Severe dysphagia -failed video swallowing study in March.'
If possible, please provide an associated diagnosis related to the abnormal BMI, such as:
Underweight
Cachectic
BMI is not significant
Other
BMI < or = to 19.9
Underweight
Weight Loss
Cachectic
Anorexia
Use of terms such as suspected, likely, concern for, or probable (associated with a specific diagnosis that is being evaluated, monitored, or treated as if it exists) are acceptable and can be coded in the inpatient setting, when documented at the
time of discharge.
Thank you,
Kaye Rodriguez RN, BSN
CDI Specialist
Available via [facility] text
Please use your independent medical judgment in providing your response.
[2024-06-01 11:05] VITALS: BP 110/55
== END 2024-06-01 13:58 | DRG 100 ==
LOC: 4 WEST ACU 14:10
PROVIDERS: Registered Nurse; ADMITTING PHYSICIAN Hospitalist; ATTENDING PHYSICIAN Hospitalist; CONSULT PHYSICIAN Psychiatry & Neurology Neurology; EMERGENCY PHYSICIAN Emergency Medicine; FAMILY PHYSICIAN Internal Medicine
DX: R56.9 Unspecified convulsions (principal); G92.8 Other toxic encephalopathy; Z68.1 Body mass index [BMI] 19.9 or less, adult; F03.94 Unspecified dementia, unspecified severity, with anxiety; F03.918 Unspecified dementia, unspecified severity, with other behavioral disturbance; I69.391 Dysphagia following cerebral infarction; I69.320 Aphasia following cerebral infarction; Z99.3 Dependence on wheelchair; R63.6 Underweight; Z11.52 Encounter for screening for COVID-19
CPT/HCPCS: 70450; 71045; 80048; 80053; 80061; 81003; 82550; 82607; 82728; 82746; 83036; 84443; 85025; 85027; 85610; 85730; 87070; 87502; 87811; 92523; 92610; 93005; 95816; 96374; 99285